=== PATIENT | male | born 1990 | race Caucasian/White ===

== ENCOUNTER 2024-06-01 05:40 | Emergency (ER) | payer BC, SELFPAY ==
[2024-06-01] MEDS ORDERED: Ketorolac Tromethamine 30 MG (1 mL) VIAL ONE (05:55)
[2024-06-01] MEDS ORDERED: Ondansetron PF 4 MG/2 ML Vial ONE (05:55)
[2024-06-01 05:58] LABS: #Basophils 0.04 10x3/uL (0.0-0.2); %Basophils 0.6 % (0.0-1.0); %Eosinophils 2.6 % (0.0-10.0); %Lymphocytes 34.4 % (21.0-51.0); %Monocytes 6.7 % (0.0-10.0); %Neutrophils 55.6 % (42.0-75.0); Hematocrit 44.1 % (42.0-52.0); Hemoglobin 15.4 g/dL (14.0-18.0); Mean Corpuscular HGB CONC 34.9 g/dL (32.0-36.0); Mean Corpuscular Hemoglobin 29.3 pg (27.0-31.0); Mean Platelet Volume 11.7 fL (7.4-10.4); Platelet Count 218 10x3/uL (130-400); Red Blood Cell (RBC) Count 5.25 mill/uL (4.70-6.10)
[2024-06-01 06:04] LABS: Bacteria/HPF None Seen HPF (None Seen); Bilirubin 1+ (Negative); Blood, Urine 3+ (Negative); CAUTI Indications for Culture Pelvic or flank pain; Calcium Oxalate Crystals 2+ HPF (None Seen); Clarity Turbid (Clear); Glucose, Urine (Dipstick) Normal (Negative); Ketone, Urine Negative (Negative); Leukocyte Negative Leu/uL (Negative); Nitrite 1+ (Negative); Protein, Urine (Dipstick) 30 mg/dL (Neg-Trace); RBC/HPF Greater than 50 HPF (0-3); Specific Gravity, Urine 1.031 (1.002-1.036); Squamous Epithelial None Seen HPF (0-3); pH, Urine 5.5 (5.0-9.0)
[2024-06-01 06:06] LABS: Urine Culture Reflex No No
[2024-06-01] MEDS ORDERED: Promethazine HCl 25 MG/ML VIAL ONE (06:46)
[2024-06-01] MEDS ORDERED: Morphine 4 MG/ML VIAL ONE (07:31)
[2024-06-01] MEDS ORDERED: Morphine 2 MG/ML VIAL ONE (07:32)
[2024-06-01 07:46] LABS: Albumin 4.5 g/dL (3.5-5.0); Calcium 9.4 mg/dL (7.8-10.44); Chloride 104 mmol/L (98-107); Potassium 4.3 mmol/L (3.5-5.1); Sodium 139 mmol/L (136-145)
[2024-06-01 07:47] LABS: Glucose 118 mg/dL (70-105)
[2024-06-01 07:48] LABS: Anion Gap 15 mmol/L (10-20); Carbon Dioxide 24 mmol/L (22-29); Globulin 3.9 g/dL (2.4-3.5); Protein, Total 8.4 g/dL (6.0-8.3)
[2024-06-01 07:50] LABS: Alkaline Phosphatase 76 U/L (40-110); Bilirubin, Total 0.7 mg/dL (0.2-1.2)
[2024-06-01 07:51] LABS: BUN (Urea Nitrogen) 17 mg/dL (8.9-20.6); Calc. Creatinine Clearance 0 mL/min (70-130); Estimated GFR 110
[2024-06-01 07:53] LABS: ALT (SGPT) 145 U/L (8-55); AST (SGOT) 201 U/L (5-34)
[2024-06-01] MEDS ORDERED: Iopamidol-370 76% 500 ML MDV (1 ML CHARGE) ONE (11:29)
== END 2024-06-01 08:47 | disposition home or self-care (01) ==
LOC: ERS 05:40
DX: N13.2 Hydronephrosis with renal and ureteral calculous obstruction (principal); Z55.6 Problems related to health literacy
CPT/HCPCS: 36415; 74177; 80053; 81001; 85025; 96374; 96375; J1885; J2270; J2272; J2405; J2550; Q9967